=== PATIENT | male | born 1940 | race Caucasian/White ===

== ENCOUNTER 2018-11-27 14:53 | Emergency (ER) | payer MEDICARE, OTHER ==
[~2018-11-27] VITALS: Ht 167.6 cm; Wt 97.1 kg
[2018-11-27] MEDS ORDERED: METFORMIN HCL500 MG PO (15:07)
[2018-11-27] MEDS ORDERED: ZETIA10 MG PO (15:08)
[2018-11-27] MEDS ORDERED: EXFORGE HCT 101 EAC2 PO (15:09)
[2018-11-27] MEDS ORDERED: CENTRUM SILVER1 EAC2 PO (15:09)
[2018-11-27] MEDS ORDERED: PRAVACHOL40 MG PO (15:09)
[2018-11-27] MEDS ORDERED: CHLORTHALIDONE25 MG PO (15:11)
[2018-11-27] MEDS ORDERED: ANALPRAM HC 2.5%4 GM RECTAL (15:20)
[2018-11-27] MEDS ORDERED: ANALPRAM HC 2.530 GM RECTAL (15:22)
[2018-11-27 15:31] VITALS: BP 137/86
== END 2018-11-27 15:31 | disposition home or self-care (01) ==
LOC: M.ERS 14:53
DX: K64.8 Other hemorrhoids (principal); I10 Essential (primary) hypertension; E78.00 Pure hypercholesterolemia, unspecified; Z90.49 Acquired absence of other specified parts of digestive tract